=== PATIENT | female | born 1990 | race Two or more races ===

== ENCOUNTER 2023-06-13 10:19 | Emergency (ER) | payer OTHER ==
[~2023-06-13] VITALS: Ht 154.9 cm; Wt 65.8 kg
[2023-06-13 10:30] VITALS: TEMP 97.9
[2023-06-13 11:57] LABS: PREGNANCY TEST URINE QUAL NEGATIVE (NEGATIVE)
[2023-06-13 12:00] LABS: APPEARANCE,URINE CLEAR (CLEAR); BILIRUBIN,URINE NEGATIVE (NEGATIVE); BLOOD, URINE NEGATIVE Ery/uL (NEGATIVE); COLOR,URINE YELLOW (YELLOW); KETONES,URINE NEGATIVE (NEGATIVE); LEUKOCYTE ESTERASE ,URINE NEGATIVE (NEGATIVE); NITRITE, URINE NEGATIVE (NEGATIVE); PROTEIN,URINE NEGATIVE (NEGATIVE); UGLUCOSE NEGATIVE (NEGATIVE); UROBILINOGEN,URINE 0.2 EU/dL (0.2)
[2023-06-13] MEDS ORDERED: FLUC150T PO (12:59)
[2023-06-13 13:09] VITALS: BP 130/74; O2SAT 97
[2023-06-15 22:06] LABS: CHLAMYDIA TRACHOMATIS NAA Negative (Negative); NEISSERIA GONORRHOEAE NAA Negative (Negative)
== END 2023-06-13 13:10 | disposition home or self-care (01) ==
LOC: ER 10:33
DX: N83.202 Unspecified ovarian cyst, left side (principal); B37.9 Candidiasis, unspecified; R39.198 Other difficulties with micturition; R10.2 Pelvic and perineal pain; Z88.8 Allergy status to other drugs, medicaments and biological substances
CPT/HCPCS: 76856-TC; 84703-TC; 87491; 87591